=== PATIENT | female | born 1990 | race Caucasian/White ===

== ENCOUNTER 2018-06-16 00:08 | Inpatient (IN) | payer MEDICAID ==
[2018-06-16 01:46] LABS: ADD UMIC NO; UR ASCORBIC ACID NEGATIVE (NEGATIVE); UR BILIRUBIN (Dip) NEGATIVE (NEGATIVE); UR BLOOD (Dip) NEGATIVE (NEGATIVE); UR CLARITY CLEAR (CLEAR); UR COLOR YELLOW (YELLOW); UR GLUCOSE (Dip) NEGATIVE (NEGATIVE); UR KETONES (Dip) NEGATIVE (NEGATIVE); UR LEUKOCYTE ESTERASE (Dip) NEGATIVE Leu/ul (NEGATIVE); UR NITRITE (Dip) NEGATIVE (NEGATIVE); UR SPECIFIC GRAVITY (Dip) 1.006 (1.003-1.030); UR TOTAL PROTEIN (Dip) NEGATIVE (NEGATIVE); UR UROBILINOGEN (Dip) NEGATIVE (NEGATIVE)
[2018-06-16] MEDS: LACTATED RINGER'S 1,000 ML IV ×5 (03:31→16:26)
[2018-06-16] MEDS: TERBUTALINE 1 MG/ML INJ SC ×2 (03:33→04:08)
[2018-06-16] MEDS ORDERED: morphine SULFATE/PF (10 MG/10 ML) INJ (08:29)
[2018-06-16] MEDS ORDERED: OXYTOCIN 10 UNIT INJ ×2 (08:29→10:50)
[2018-06-16] MEDS ORDERED: MISOPROSTOL 200 MCG TAB PR ×2 (08:30→15:30)
[2018-06-16] MEDS ORDERED: CARBOPROST 250 MCG INJ IM ×2 (08:30→15:30)
[2018-06-16] MEDS ORDERED: CEFAZOLIN 2 GM/50 ML (PMX) 50 ML IVPB (08:30)
[2018-06-16] MEDS ORDERED: OXYTOCIN 30 UNITS/LR 500 ML IV ×3 (08:30→15:30)
[2018-06-16] MEDS ORDERED: PHENYLephrine (100 MCG/ML) 10ML SYG (08:34)
[2018-06-16] MEDS: METOCLOPRAMIDE 10 MG INJ IV (08:38)
[2018-06-16] MEDS: FAMOTIDINE 20 MG INJ IV (08:38)
[2018-06-16] MEDS: ONDANSETRON 4 MG INJ IV (08:39)
[2018-06-16 08:42] LABS: ADD MAN DIFF? NO
[2018-06-16 08:44] LABS: BASOPHILS % 0.5 % (0.0-2.0); EOSINOPHILS # 0.1 10^3/ul (0.0-0.5); EOSINOPHILS % 0.6 % (0.0-7.0); HEMATOCRIT 39.4 % (37.0-47.0); HEMOGLOBIN 12.8 g/dl (12.0-16.0); LYMPHOCYTES % 24.3 % (15.0-51.0); MEAN CORPUSCULAR HEMOGLOBIN 29.9 pg (29.0-33.0); MEAN CORPUSCULAR HGB CONC 32.5 g/dl (32.0-37.0); MEAN CORPUSCULAR VOLUME 92.1 fl (82.0-101.0); MEAN PLATELET VOLUME 10.5 fl (7.4-10.4); MONOCYTE # 0.6 10^3/ul (0.3-0.9); MONOCYTES % 7.4 % (0.0-11.0); NEUTROPHIL # 5.5 10^3/ul (1.6-7.5); NEUTROPHILS % 65.5 % (39.0-77.0); PLATELET COUNT 336 10^3/UL (140-415); RED BLOOD COUNT 4.28 10^6/ul (4.20-5.40); RED CELL DISTRIBUTION WIDTH 13.2 % (11.5-14.5)
[2018-06-16 08:44] LABS: WHITE BLOOD COUNT 8.4 10^3/ul (4.8-10.8)
[2018-06-16 08:58] LABS: AMPHETAMINE/METHAMPHETAMINE Negative (NEGATIVE); BARBITURATES Negative (NEGATIVE); BENZODIAZEPINES Negative (NEGATIVE); CANNABINOIDS Negative (NEGATIVE); COCAINE Negative (NEGATIVE); OPIATES Negative (NEGATIVE)
[2018-06-16] MEDS ORDERED: HYDROmorphONE 0.5 MG/0.5 ML SYG IV (09:00)
[2018-06-16] MEDS ORDERED: KETOROLAC 30 MG INJ IV ×2 (09:00)
[2018-06-16] MEDS ORDERED: FENTAnyl 50 MCG/ML VIAL IV ×2 (09:00)
[2018-06-16] MEDS ORDERED: NALOXONE (0.4 MG/ML) INJ IV ×2 (09:00→15:30)
[2018-06-16] MEDS ORDERED: HYDROmorphONE 1 MG/5 ML IV SYRINGE IV ×5 (09:00→15:30)
[2018-06-16] MEDS ORDERED: ZOLPIDEM 5 MG TAB PO ×3 (09:00→15:30)
[2018-06-16] MEDS ORDERED: ONDANSETRON 4 MG INJ IV ×5 (09:00→15:30)
[2018-06-16] MEDS: BETAMET NA PHOS/AC(6 MG/ML) 2 ML INJ SYG IM (09:08)
[2018-06-16 09:24] LABS: HEPATITIS B SURFACE ANTIGEN NEGATIVE (NEGATIVE)
[2018-06-16 09:34] LABS: INR 0.86; PARTIAL THROMBOPLASTIN TIME 28.6 Sec (23.0-35.0); PROTIME 11.8 Sec (11.9-14.9); PT RATIO 0.9
[2018-06-16 10:15] LABS: HIV 1&2 ANTIBODY NEGATIVE (NEGATIVE)
[2018-06-16] MEDS ORDERED: SUCCINYLCHOLINE CHLORIDE 100 MG/5 ML SYG IV (10:48)
[2018-06-16] MEDS ORDERED: PROPOFOL 20 ML (10:48)
[2018-06-16] MEDS ORDERED: FENTAnyl 50 MCG/ML VIAL (10:54)
[2018-06-16] MEDS ORDERED: HYDROmorphONE 2 MG/ML SYG (11:27)
[2018-06-16] MEDS: HYDROmorphONE 0.5 MG/0.5 ML SYG IV (12:10)
[2018-06-16] MEDS: OXYTOCIN 30 UNITS/LR 500 ML IV ×3 (12:13→20:38)
[2018-06-16] MEDS ORDERED: ONDANSETRON 4 MG INJ (12:23)
[2018-06-16] MEDS ORDERED: METHYLERGONOVINE 0.2 MG INJ IM (15:30)
[2018-06-16] MEDS: LANOLIN HPA 1 PKT TOP (16:12)
[2018-06-16] MEDS: DIPHENHYDRAMINE 50 MG INJ IV (17:46)
[2018-06-16] MEDS: IBUPROFEN 600 MG TAB PO (18:00)
[2018-06-16] MEDS: SENNA/DOCUSATE NA (8.6MG/50MG) TAB PO (20:40)
[2018-06-16 21:09] LABS: RAPID PLASMA REAGIN NONREACTIVE (NR)
[2018-06-17] MEDS: LACTATED RINGER'S 1,000 ML IV (01:19)
[2018-06-17] MEDS: IBUPROFEN 600 MG TAB PO ×5 (06:00→23:33)
[2018-06-17 06:46] LABS: ADD MAN DIFF? NO
[2018-06-17 06:49] LABS: BASOPHILS % 0.2 % (0.0-2.0); EOSINOPHILS % 0.3 % (0.0-7.0); HEMATOCRIT 30.3 % (37.0-47.0); HEMOGLOBIN 10.3 g/dl (12.0-16.0); LYMPHOCYTES # 1.7 10^3/ul (0.8-2.9); LYMPHOCYTES % 14.3 % (15.0-51.0); MEAN CORPUSCULAR HEMOGLOBIN 29.9 pg (29.0-33.0); MEAN CORPUSCULAR VOLUME 87.8 fl (82.0-101.0); MEAN PLATELET VOLUME 10.1 fl (7.4-10.4); MONOCYTE # 1.1 10^3/ul (0.3-0.9); MONOCYTES % 9.1 % (0.0-11.0); NEUTROPHILS % 75.3 % (39.0-77.0); PLATELET COUNT 289 10^3/UL (140-415); RED BLOOD COUNT 3.45 10^6/ul (4.20-5.40); RED CELL DISTRIBUTION WIDTH 13.2 % (11.5-14.5)
[2018-06-17 06:49] LABS: WHITE BLOOD COUNT 11.9 10^3/ul (4.8-10.8)
[2018-06-17] MEDS: SENNA/DOCUSATE NA (8.6MG/50MG) TAB PO ×2 (08:25→22:04)
[2018-06-17] MEDS: OXYCODONE/ACETAMINOPHEN (5/325) TAB PO ×2 (08:25→16:24)
[2018-06-17] MEDS: INFLUENZA VIRUS VACCINE 0.5 ML (DISPENSING) IM* (10:48)
[2018-06-18] MEDS: IBUPROFEN 600 MG TAB PO ×3 (05:59→17:21)
[2018-06-18] MEDS: OXYCODONE/ACETAMINOPHEN (5/325) TAB PO ×2 (08:30→20:11)
[2018-06-18] MEDS: SENNA/DOCUSATE NA (8.6MG/50MG) TAB PO ×2 (08:31→20:11)
[2018-06-19] MEDS: IBUPROFEN 600 MG TAB PO ×3 (00:33→12:00)
[2018-06-19] MEDS: SENNA/DOCUSATE NA (8.6MG/50MG) TAB PO (08:45)
[2018-06-19] MEDS: OXYCODONE/ACETAMINOPHEN (5/325) TAB PO (09:32)
[2018-06-19] MEDS: DIPHTH/TET/ACEL PERTUSS (ADULT) 0.5 ML VIAL IM* (12:01)
[2018-06-22 11:11] LABS: RUBELLA ANTIBODY - IGM <20.00 AU/mL
== END 2018-06-19 14:27 | disposition home or self-care (01) | DRG 788 ==
LOC: OBT 00:08 → L-D 00:10 → OBT 08:19 → L-D 08:19 → PP1 14:00
PROC: 10D00Z1 Extraction of Products of Conception, Low, Open Approach (ICD-10-PCS; principal; 2018-06-16)
PROC: 4A1HXCZ Monitoring of Products of Conception, Cardiac Rate, External Approach (ICD-10-PCS; 2018-06-16)
PROC: 3E0234Z Introduction of Serum, Toxoid and Vaccine into Muscle, Percutaneous Approach (ICD-10-PCS; 2018-06-19)
DX: O42.913 Preterm premature rupture of membranes, unspecified as to length of time between rupture and onset of labor, third trimester (principal); O32.1XX0 Maternal care for breech presentation, not applicable or unspecified; O34.219 Maternal care for unspecified type scar from previous cesarean delivery; Z3A.35 35 weeks gestation of pregnancy; Z37.0 Single live birth
CPT/HCPCS: 36415; 76815; 76818; 80307; 81003; 85025; 85610; 85730; 86592; 86703; 86762; 86900; 86901; 87340; 88307; 90715; 96360; 96361; 99464